=== PATIENT | male | born 1975 | race Caucasian/White ===

== ENCOUNTER 2019-05-14 13:43 | Observation (INO) | payer MEDICARE, SELFPAY ==
[2019-05-14] VITALS (10 sets, daily range): BP systolic 132–144; BP diastolic 67–101; PULSE 76–134; RESP 16–22; TEMP 37.1–37.4; O2SAT 95–98; BMI 29.6
--- NOTE | 2019-05-14 16:38 | W.ED.MALEGU ---
HPI - Male Genitourinary General Stated complaint: groin pain Time Seen by Provider: 05/14/19 16:12 Related Data Home Medications Medication Instructions Recorded Confirmed diphenhydramine HCl [Benadryl 50 mg PO BID PRN 05/14/19 05/14/19 Allergy] gabapentin 300 mg PO QID 05/14/19 05/14/19 multivitamin 1 tab PO DAILY 05/14/19 05/14/19 oxycodone 10 mg PO Q8H PRN 05/14/19 05/14/19 zolpidem [Ambien] 10 mg PO BEDTIME 05/14/19 05/14/19 Previous Rx's Medication Instructions Recorded sulfamethoxazole-trimethoprim 1 tab PO BID 7 Days #14 tab 05/14/19 Allergies Allergy/AdvReac Type Severity Reaction Status Date / Time Penicillins Allergy ALGY-Rash Verified 05/14/19 14:39 Discharge Plan Discharge Patient Disposition: Admitted As Inpatient Admit Provider: Trenton Temple Condition: Stable Discharge Orders: Discharge Order (Routine); Ordered 05/14/19 Ordered By: Trenton Temple Referrals: Trenton Temple MD [Physician] - (I need to see him tomorrow late morning for wound check and dressing change. Can reinforce the gauze pads over his wound.) Tabitha Barrios MD [Primary Care Provider] - 7-10 days Discharge Diet: Regular Discharge Activity: Limit activity as instructed Patient Instructions: Surgical Site Infections (GEN) Additional Instructions: Restrict activities until further released by Physician. Discharge Date/Time: 05/14/19 19:13
--- NOTE | 2019-05-14 16:54 | W.ED.MALEGU ---
HPI - Male Genitourinary General Chief complaint: Urogenital-Male Stated complaint: groin pain Time Seen by Provider: 05/14/19 16:12 Related Data Home Medications Medication Instructions Recorded Confirmed diphenhydramine HCl [Benadryl 50 mg PO BID PRN 05/14/19 05/14/19 Allergy] gabapentin 300 mg PO QID 05/14/19 05/14/19 hydrocodone-acetaminophen [[place]] See Rx Instructions .ROUTE 05/14/19 05/14/19 .COMPLEX PRN multivitamin 1 tab PO DAILY 05/14/19 05/14/19 oxycodone 10 mg PO Q8H PRN 05/14/19 05/14/19 zolpidem [Ambien] 10 mg PO BEDTIME 05/14/19 05/14/19 Allergies Allergy/AdvReac Type Severity Reaction Status Date / Time Penicillins Allergy ALGY-Rash Verified 05/14/19 14:39 Discharge Plan Discharge Patient Disposition: Home, Self-Care Condition: Stable Prescriptions: No Action gabapentin 300 mg Capsule 300 mg PO QID RF: 0 multivitamin Tablet 1 tab PO DAILY RF: 0 [place] 10-325 mg Tablet See Rx Instructions .ROUTE .COMPLEX PRN (Reason: Pain) RF: 0 Benadryl Allergy 25 mg Tablet 50 mg PO BID PRN (Reason: Allergic Symptoms) RF: 0 Ambien 10 mg Tablet 10 mg PO BEDTIME RF: 0 oxycodone 10 mg Tablet 10 mg PO Q8H PRN (Reason: Pain) RF: 0 Referrals: Tabitha Barrios MD [Primary Care Provider] - MDM - Male Lab Data Result diagrams: 05/14/19 17:25 05/14/19 17:25 Labs: Lab Results 05/14/19 05/14/19 Range/Units 17:25 17:25 WBC 19.8 H (4.0-10.0) 10^3/uL RBC 5.29 (4.1-5.3) 10^6/uL Hgb 15.2 (11.7-16.6) g/dL Hct 45.9 (42.0-52.0) % MCV 86.8 (80-94) fL MCH 28.7 (28.0-34.0) pg MCHC 33.1 (30.0-36.0) g/dL RDW 13.8 (12.1-15.1) % Plt Count 319 (130-400) 10^3/cmm MPV 9.7 (7.4-10.4) fL Neut % (Auto) 72.7 % Lymph % (Auto) 18.3 % [place] % (Auto) 7.6 % Eos % (Auto) 0.6 % Baso % (Auto) 0.4 % Neut # (Auto) 14.4 H (1.8-7.7) 10^3/uL Lymph # (Auto) 3.6 (0.8-4.8) 10^3/uL [place] # (Auto) 1.5 H (0.2-0.9) 10^3/uL Eos # (Auto) 0.1 (0.0-0.8) 10^3/uL Baso # (Auto) 0.1 (0.0-0.1) 10^3/uL Nucleated RBC % (auto) 0 % Nucleated RBCs # 0.0 /100WBC Sodium 141 (136-145) mmol/L Potassium 3.7 (3.5-5.1) mmol/L Chloride 103 (98-107) mmol/L Carbon Dioxide 24 (22-29) mmol/L Anion Gap 17.7 (5-19) BUN 14 (6-20) mg/dL Creatinine 0.9 (0.7-1.2) mg/dL GFR Calculation 92.5 (90-130) mL/min Glucose 134 H (74-109) mg/dL Calcium 10.1 H (8.6-10.0) mg/Dl Total Bilirubin 0.3 (0.15-1.2) mg/dL AST 13 (0-40) U/L ALT 13 (0-41) U/L Alkaline Phosphatase 84 (40-130) IU/L Total Protein 8.0 (6.6-8.7) g/dL Albumin 4.7 (3.5-5.2) g/dL Globulin 3.3 (1.3-4.6) g/dL
--- NOTE | 2019-05-14 17:06 | US_ITS ---
WS: [id number] SCROTAL ULTRASOUND EXAMINATION CLINICAL INFORMATION: developing abscess COMPARISON: None. FINDINGS: TESTES Mixed echogenicity left scrotal collection consistent with abscess measuring 2.5 x 2.3 cm. Associated skin thickening. Testicles are otherwise normal in appearance. Color Doppler: Normal color Doppler flow pattern. Right testes size: 4.1 cm x 1.9 cm x 2.5 cm. Left testes size: 3.7 cm x 2.2 cm x 2.6 cm. EPIDIDYMIDES Normal in size and echotexture, without focal lesion. Color Doppler: Normal color Doppler flow pattern. HYDROCELE None. VARICOCELE None. US/US scrotum 54230 IMPRESSION: 1. Left scrotal abscess measuring 2.5 x 2.3 CM. Associated scrotal skin thicke linda. 2. Testicles are otherwise normal in appearance.
[2019-05-14] MEDS: ondansetron 2 mg/ML SDV 2 mL 4 MG IVP (17:21)
[2019-05-14] MEDS: fentaNYL 50 mcg/mL INJ 2mL 100 MCG IVP ×2 (17:21→18:33)
[2019-05-14 17:37] LABS: Add RBC Morph No; Basophils # 0.1 10^3/uL (0.0-0.1); Basophils % 0.4 %; Eosinophils # 0.1 10^3/uL (0.0-0.8); Eosinophils % 0.6 %; Hematocrit 45.9 % (42.0-52.0); Hemoglobin 15.2 g/dL (11.7-16.6); Lymphocytes # 3.6 10^3/uL (0.8-4.8); Lymphocytes % 18.3 %; Mean Corpuscular HGB Conc 33.1 g/dL (30.0-36.0); Mean Corpuscular Hemoglobin 28.7 pg (28.0-34.0); Mean Corpuscular Volume 86.8 fL (80-94); Mean Platelet Volume 9.7 fL (7.4-10.4); Monocytes # 1.5 10^3/uL (0.2-0.9); Monocytes % 7.6 %; Neutrophils # 14.4 10^3/uL (1.8-7.7); Neutrophils % 72.7 %; Nucleated Red Blood Cells % 0 %; Platelet Count 319 10^3/cmm (130-400); Red Blood Count 5.29 10^6/uL (4.1-5.3); Red Cell Distribution Width 13.8 % (12.1-15.1); White Blood Count 19.8 10^3/uL (4.0-10.0)
--- NOTE | 2019-05-14 17:43 | PC.NURSE ---
US AT BEDSIDE. TOLERATING PROCEDURE WELL.
[2019-05-14 17:57] LABS: Alanine Aminotransferase 13 U/L (0-41); Albumin Level 4.7 g/dL (3.5-5.2); Alkaline Phosphatase 84 IU/L (40-130); Anion Gap 17.7 (5-19); Aspartate Amino Transferase 13 U/L (0-40); Blood Urea Nitrogen 14 mg/dL (6-20); Calcium 10.1 mg/Dl (8.6-10.0); Carbon Dioxide 24 mmol/L (22-29); Chloride 103 mmol/L (98-107); Globulin 3.3 g/dL (1.3-4.6); Glomerular Filtration Rate 92.5 mL/min (90-130); Glucose 134 mg/dL (74-109); Potassium 3.7 mmol/L (3.5-5.1); Sodium 141 mmol/L (136-145); Total Bilirubin 0.3 mg/dL (0.15-1.2)
--- NOTE | 2019-05-14 19:07 | P.HP_ITS ---
Providers/Chief Complaint Admitting Physician: Windy Primary Care Provider: Tabitha Barrios Chief Complaint: scrotal/perineal abscess History of Present Illness Reyes Perez is a 44 year old male who noticed an infected ingrown hair on his left hemiscrotum in pulled out forcefully. Yesterday he had a acorn size lesion that was tender and by this afternoon it became the size of a lemon. He presented to the emergency department was found to have a white count of 19,000 and a scrotal ultrasound confirmed large left hemiscrotal abscess. He was exquisitely tender. Could not get comfortable. No signs of sepsis. Received VANCOMYCIN 1 g in the emergency department. I was consulted for evaluation. Physical findings confirmed left hemiscrotal/perineal abscess. Did not involve the deep structures of the scrotum. Ultrasound reviewed and I agreed with it. He gave consent for emergent drainage of scrotal abscess. Review of Systems Const: Reports: fever and chills Eyes: Denies: change in vision ENMT: Denies: throat pain or mouth pain Card: Denies: chest pain or palpitations Resp: Reports: non-productive cough; Denies: shortness of breath GI: Denies: abdominal pain, nausea or vomiting : Reports: genital pain and scrotal swelling; Denies: flank pain or difficulty urinating Musc: Denies: neck pain or joint stiffness Neuro: Denies: headache or behavioral changes Psych: Reports: anxiety Endo: Denies: excessive urination Kvng/Lymph: Denies: easy bruising or easy bleeding All/Imm: Denies: hives Medications/Allergies Home Medications Medication Instructions Recorded Confirmed Last Taken Type diphenhydramine HCl [Benadryl 50 mg PO BID PRN 05/14/19 05/14/19 05/14/19 History Allergy] gabapentin 300 mg PO QID 05/14/19 05/14/19 Unknown History hydrocodone-acetaminophen [[place]] See Rx Instructions .ROUTE 05/14/19 05/14/19 05/14/19 10:00 History .COMPLEX PRN multivitamin 1 tab PO DAILY 05/14/19 05/14/19 Unknown History oxycodone 10 mg PO Q8H PRN 05/14/19 05/14/19 05/13/19 History zolpidem [Ambien] 10 mg PO BEDTIME 05/14/19 05/14/1919 History Allergies Allergy/AdvReac Type Severity Reaction Status Date / Time Penicillins Allergy ALGY-Rash Verified 05/14/19 14:39 PFSH Acute PFSH: Statuses (acute, chronic, etc) shown below reflect problem list status as previously entered and may not be historically accurate Medical History Chronic pain (Acute) Crohn's colitis (Acute) Hypertension (Acute) Osteoarthritis (Acute) Surgical History Surgical history unknown (Acute) Family History Unknown Fibromyalgia Breast cancer genetic susceptibility Mother Breast cancer genetic susceptibility Social History Smoking and tobacco status: current every day smoker Vitals/I&O/Wt Last Vital Signs Temp 98.7 F 05/14/19 14:28 Pulse 81 05/14/19 17:54 Resp 20 H 05/14/19 17:54 BP 132/79 05/14/19 17:54 Pulse Ox 98 05/14/19 14:28 Weight last 48 hrs Weight 88.451 kg Physical Exam Const: COMMON NORMALS: oriented x3 and well nourished; apparent distress EXAM LIMITATIONS: no altered mental status GENERAL APPEARANCE: cooperative ORIENTATION/CONSCIOUSNESS: Yes awake and Yes oriented to person HENMT: COMMON NORMALS: normocephalic and head/scalp atraumatic Eye: COMMON NORMALS: conjunctivae normal and no scleral icterus Neck/C-Spine: COMMON NORMALS: full ROM and supple Lymph: LYMPHATIC: no lymphadenopathy noted Resp: COMMON NORMALS: normal respiratory effort; negative for no retractions EFFORT & INSPECTION: Yes able to speak in complete sentences AUSCULTATION: clear to auscultation bilaterally Cardio: COMMON NORMALS: regular rhythm RATE: tachycardic RHYTHM: regular rhythm GI: COMMON NORMALS: normal to inspection, nondistended, normoactive bowel sounds : COMMON NORMALS: Yes no CVA tenderness MALE GROIN/PERINEUM EXAM: Yes edema, Yes perineal induration and No perineum crepitus SCROTUM: Yes testes descended bilaterally, Yes tenderness, Yes erythematous and Yes scrotal swelling Scrotal swelling laterality: left TESTES: Yes testicular lie normal, No enlarged testicle(s), No testicular tenderness, No epididymal induration and No epididymal tenderness Extremity: COMMON NORMALS: normal to inspection and no clubbing, cyanosis or edema GENERAL: No clubbing and No cyanosis Neuro: COMMON NORMALS: oriented x3 SENSORIUM/ORIENTATION: Yes alert MOTOR EXAM: No movement abnormality noted Psych: COMMON NORMALS: cooperative and affect normal APPEARANCE: Yes well kempt ATTITUDE: No uncooperative and No agitated MOOD & AFFECT: Yes anxious THOUGHT PROCESS: normal thought process Skin: COMMON NORMALS: no rashes or lesions noted and no wounds Data Labs: Other Labs: All Labs last 24 hrs except CBC/BMP 05/14/19 05/14/19 17:25 17:25 RBC 5.29 MCV 86.8 MCH 28.7 MCHC 33.1 RDW 13.8 MPV 9.7 Neut % (Auto) 72.7 Lymph % (Auto) 18.3 [place] % (Auto) 7.6 Eos % (Auto) 0.6 Baso % (Auto) 0.4 Neut # (Auto) 14.4 H Lymph # (Auto) 3.6 [place] # (Auto) 1.5 H Eos # (Auto) 0.1 Baso # (Auto) 0.1 Nucleated RBC % (a uto) 0 Nucleated RBCs # 0.0 GFR Calculation 92.5 Calcium 10.1 H Total Bilirubin 0.3 AST 13 ALT 13 Alkaline Phosphata se 84 Total Protein 8.0 Albumin 4.7 Globulin 3.3 A&P Assessment and plan (1) Perineal abscess: Abrupt onset with fairly prompt progression no evidence of gangrene or necrotizing fasciitis Status: Acute Code(s): L02.215 - Cutaneous abscess of perineum (2) Scrotal wall abscess: See above Status: Acute Code(s): N49.2 - Inflammatory disorders of scrotum Attestations Medical Necessity Statement*: Scrotal Abscess needs surgical drainage Coding Level of Care Code 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
--- NOTE | 2019-05-14 19:27 | PM.OP ---
Operative Report Post-Operative Note: Date of procedure: 05/14/19 Preop Diagnosis: Scrotal/perineal abscess Post-op Findings: Scrotal/perineal abscess Procedure Done: Drainage of scrotal abscess Pathology: other (Wound culture) Surgeon: Trenton Temple Anesthesia: general Complications: none Findings: Large abscess involving primarily the perineum near the perineal scrotal junction extending lateral to the left hemiscrotum. Condition: stable Disposition: PACU Operative Report: Brief History: 44-year-old white male presented to the emergency department today with complaints of a corn size small infectious lesion resulted from ingrown hair forcible removal. Overnight it increased to the size of a lemon. Exquisite pain. White count was 19,000. Physical exam confirmed no evidence of Clemente's gangrene. No involvement of the intrascrotal contents. The bulk of the abscess was actually extra scrotal and at the perineal scrotal junction. Procedure: After emergent evaluation examination and obtaining of informed consent he was taken to the operating suite on 05/14/2019 where general anesthesia was administered without difficulty after appropriate time out was performed, SCDs confirmed to be functioning, preoperative antibiotics administered, beta-myra protocol confirmed. Prepped and draped in usual sterile fashion in dorsolithotomy position pain careful attention to avoiding pressure points. The area of induration was again palpated and incised with a 10 blade with an incision approximately 2.5 to 3 cm in length. Immediate release of purulent fluid was noted and cultures were performed. The wound was incised enough to pass a small finger and then it was copiously irrigated and palpated to break up any loculations. The perineal skin and subcutaneous tissue were quite thickened. Wound was then sterilely packed with Nu Gauze. External dressings used to cover and maternity briefs placed over those. Tolerated procedure well without complications and was awakened in the operating room and returned to recovery in stable condition. PLANS: 1. Check wound tomorrow. Repack. Train family on wound care. Likely discharge at that time. 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
[2019-05-14] MEDS: sodium chloride 0.9% 1,000 ML 30 ML IV (19:29)
--- NOTE | 2019-05-14 19:39 | P.PN_ITS ---
Pre-Anesthetic Assessment Pre-Anesthetic Assessment: Height/Weight: Height 1.73 m Weight 88.451 kg Temp Pulse Resp BP Pulse Ox 98.7 F 76 18 137/67 98 05/14/19 14:28 05/14/19 19:11 05/14/19 19:11 05/14/19 19:11 05/14/19 19:11 Proposed Procedure: Operation Date: 05/14/19 18:55 Proposed Procedures p Scrotal Exploration(Not Applicable) - Trenton Temple MD Social: Social History: Alcohol and Tobacco Exam: Pre-Anes Outpt Exam: alert, oriented x 3, clear to auscultation bilaterally and regular rate & rhythm Airway: Submandibular: WNL Cervical ROM: WNL MP: 2 Dentition: False Pulmonary: Pulmonary: COPD Musc/skel: Comments: chronic pain Anesthetic Plan: ASA status: E Anesthesia: Anesthesia Evaluation and General Risk of > 500 ml blood loss (7ml/kg in children): No Meds/Allergies Current Medications: Current Medications Generic Name Dose Route Start Last Admin Trade Name Freq PRN Reason Stop Dose Admin Sodium Chloride 1,000 mls @ 30 ml s/hr 05/14/19 19:30 05/14/19 19:29 Sodium Chloride 0.9% IV 30 mls/hr .Q24H GAUTAM Administration PFSH Anesthesia PFSH: Medical History Chronic pain (Acute) Crohn's colitis (Acute) Hypertension (Acute) Osteoarthritis (Acute) Surgical History Surgical history unknown (Acute) Family History Unknown Fibromyalgia Breast cancer genetic susceptibility Mother Breast cancer genetic susceptibility Social History Smoking and tobacco status: current every day smoker Data Anesthesia Labs: Other Labs: Laboratory Results - last 48 hr 05/14/19 05/14/19 17:25 17:25 WBC 19.8 H RBC 5.29 Hgb 15.2 Hct 45.9 MCV 86.8 MCH 28.7 MCHC 33.1 RDW 13.8 Plt Count 319 MPV 9.7 Neut % (Auto) 72.7 Lymph % (Auto) 18.3 [place] % (Auto) 7.6 Eos % (Auto) 0.6 Baso % (Auto) 0.4 Neut # (Auto) 14.4 H Lymph # (Auto) 3.6 [place] # (Auto) 1.5 H Eos # (Auto) 0.1 Baso # (Auto) 0.1 Nucleated RBC % (a uto) 0 Nucleated RBCs # 0.0 Sodium 141 Potassium 3.7 Chloride 103 Carbon Dioxide 24 Anion Gap 17.7 BUN 14 Creatinine 0.9 GFR Calculation 92.5 Glucose 134 H Calcium 10.1 H Total Bilirubin 0.3 AST 13 ALT 13 Alkaline Phosphata se 84 Total Protein 8.0 Albumin 4.7 Globulin 3.3 Cardiac Studies: No Data to Display
== END 2019-05-14 21:30 | disposition home or self-care (01) ==
LOC: ER 18:17 → OR 18:25 → MEDSURG 20:10
PROVIDERS: Admitting Provider Urology; Emergency Provider Family Medicine; Family Provider Family Medicine; PCP Family Medicine; Visit Provider Urology
PROC: (CPT 55110; principal; 2019-05-14 18:55)
DX: N49.2 Inflammatory disorders of scrotum (principal); I10 Essential (primary) hypertension; M19.90 Unspecified osteoarthritis, unspecified site; F17.210 Nicotine dependence, cigarettes, uncomplicated
CPT/HCPCS: 54700; 36415; 76870; 80053; 85025; 87070; 87075; 87077; 87205; 96374; 99281; 99284; J0330; J2405; J2704; J2710; J3010; J3490; J7030

== ENCOUNTER 2019-11-19 05:53 | Day surgery (SDC) | payer MEDICARE, SELFPAY ==
[2019-11-18 16:42] VITALS: BMI 28.3
[2019-11-19] VITALS (8 sets, daily range): BP systolic 114–159; BP diastolic 72–94; PULSE 82–93; RESP 18–20; TEMP 36.3–36.9; O2SAT 97–100
--- NOTE | 2019-11-19 06:30 | ANES.PREANE2 ---
Pre-Anesthetic Assessment Pre-Anesthetic Assessment: Height/Weight: Height 1.73 m Weight 84.368 kg Temp Pulse Resp BP Pulse Ox 98.5 F 93 18 159/94 98 11/19/19 06:08 11/19/19 06:08 11/19/19 06:08 11/19/19 06:08 11/19/19 06:08 Preop Diagnosis: Scrotal/perineal abscess Proposed Procedure: Operation Date: 11/19/19 07:10 Proposed Procedures p Incision And Drainage perianal abscess 99168 L02.215(Not Applicable) - Harry Quiñones MD Last intake: Intake Last Liquid Date 11/18/19 Last Solid Date 11/18/19 Social: Social History: Alcohol and Tobacco Exam: Pre-Anes Outpt Exam: alert, oriented x 3, clear to auscultation bilaterally and regular rate & rhythm Airway: Submandibular: WNL Cervical ROM: WNL MP: 1 Dentition: Other (edentureless) History/ROS: No significant history except as noted Pulmonary: Pulmonary: None reported CV/HEM: CV/HEM: None reported : : None reported Hepatic: Hepatic: None reported GI: Comments: crohn's dz Metabolic: Metabolic: None reported Musc/skel: Musc/skel: OA/DJD Neuropsych: Neuropsych: Anxiety and Depression Anesthetic Plan: ASA status: 2 Anesthesia: Anesthesia Evaluation and General Risk of > 500 ml blood loss (7ml/kg in children): No PFSH Anesthesia PFSH: Medical History Chronic pain Crohn's colitis Hypertension Osteoarthritis Perineal abscess Scrotal wall abscess Surgical History Surgical history unknown Family History Unknown Fibromyalgia Breast cancer genetic susceptibility Mother Breast cancer genetic susceptibility Sister Breast cancer genetic susceptibility BILATERAL MASTECTOMY Denies family history of Anesthesia complication Bleeding disorder Social History Smoking and tobacco status: current every day smoker cigarettes Packs smoked per day: 0.5 Years cigarettes smoked: 25 Second hand smoke exposure: Yes Alcohol intake: current Alcohol intake frequency: holidays/special occasions only Lives independently: Yes Household members: spouse Marital status: service: No Current occupational status: disabled History of recent travel: No Current gender identity: Male Data Anesthesia Cardiac Studies: No Data to Display
[2019-11-19] MEDS: sodium chloride 0.9% 1,000 ML 30 ML IV (06:40)
[2019-11-19] MEDS: levofloxacin-dextrose 5 % 500 MG/100 ML PREMIX 100 MG IV (07:00)
--- NOTE | 2019-11-19 07:29 | PM.OP ---
Operative Report Date of procedure: November 19, 2019 Pre-op Diagnosis: Perianal abscess Post-op Diagnosis: 4 x 4 centimeter perianal abscess Procedure Done: Incision and drainage of perianal abscess Specimens removed/disposition: Aerobic and anaerobic wound cultures Surgeon: Harry Quiñones Anesthesia: General Estimated blood loss (mL): 5 Procedure: The patient was taken to the operating room and placed in lateral position under MAC after IV antibiotic had been administered. The perianal area was draped in a sterile manner. Using a 15 blade a 3cm radial incision was made about 1.5 cm from the anal verge at the area of maximal fluctuance with drainage of jesse pus. Aerobic anaerobic wound cultures were obtained. The incision was then converted to a cruciate incision and loculations were taken down bluntly. The wound was irrigated saline and packed with quarter inch ribbon gauze soaked in 0.5% [place]. Sterile dressings were applied. The patient was extubated and transferred to recovery room in stable condition.
[2019-11-19] MEDS: fentaNYL 50 mcg/mL INJ 2mL IVP (07:31)
[2019-11-19] MEDS: HYDROcodone-acetaminophen 5-325 mg Tablet 1 TAB PO (08:13)
== END 2019-11-19 08:27 | disposition home or self-care (01) ==
PROVIDERS: PCP Nurse Practitioner Family; Visit Provider Surgery
PROC: (CPT 46050; principal; 2019-11-19 07:00)
DX: K61.0 Anal abscess (principal); I10 Essential (primary) hypertension; M19.90 Unspecified osteoarthritis, unspecified site; F17.210 Nicotine dependence, cigarettes, uncomplicated
CPT/HCPCS: 46050; 12345; 87070; 87075; 87077; 87205; 96365; J0330; J1100; J1956; J2001; J2370; J2405; J2704; J3010; J3490; J7030

== ENCOUNTER 2020-02-04 13:56 | Outpatient (CLI) | payer MEDICARE, SELFPAY ==
--- NOTE | 2020-02-04 14:01 | XRR_ITS ---
PROCEDURE INFORMATION: Exam: XR Chest, 2 Views Exam date and time: 02/04/2020 2:02 PM Age: 44 years old Clinical indication: Chest pain; Type not specified; Additional info: Chest pain at rest x couple of months TECHNIQUE: Imaging protocol: XR of the chest Views: 2 views. COMPARISON: No relevant prior studies available. FINDINGS: Lungs: Unremarkable. No consolidation. Pleural space: Unremarkable. No pleural effusion. No pneumothorax. Heart/Mediastinum: Unremarkable. No cardiomegaly. Bones/joints: Unremarkable. XR/XR chest 2V* [id number] IMPRESSION: No acute findings.
== END 2020-02-04 13:57 | disposition home or self-care (01) ==
LOC: RAD 13:57
PROVIDERS: PCP Nurse Practitioner Family; Visit Provider Nurse Practitioner Family
DX: R07.9 Chest pain, unspecified (principal)
CPT/HCPCS: 71046

== ENCOUNTER 2020-03-05 13:40 | Emergency (ER) | payer MEDICARE, SELFPAY ==
[2020-03-05 13:44] VITALS: BP 146/94; PULSE 110; RESP 20; TEMP 36.5; O2SAT 98; BMI 28.8
--- NOTE | 2020-03-05 14:20 | ED_ITS ---
HPI - Back Pain/Injury General: Chief Complaint: Back Pain/Injury Stated Complaint: Lower back pain Time Seen by Provider: 03/05/20 13:56 Source: patient Mode of arrival: ambulatory Limitations: no limitations History of Present Illness: HPI Narrative: Patient was assisting a friend to help on a truck when a 200 pound dog that belonged to his friend run into the patient, causing him to twist and fall. He has had severe right back pain since then. He feels his muscles are spasming. Movement and turning make the pain worse. He is here to be seen MD elicited complaint: back pain and back injury Pertinent past history: prior back pain Timing: constant and progressively worsening Severity: severe Quality: spasming Location: right lower back Radiation: none Exacerbating factors: movement Relieving factors: none Context: while lifting and turning/twisting Associated symptoms: Deny abdominal pain, arthralgias, chills, change in bowel habits, difficulty walking, dysuria, fatigue, fecal incontinence, fever(s), hematuria, myalgias, nausea, numbness, syncope, tingling/numbness/burning, urinary frequency, urinary urgency, vomiting or weakness Review of Systems General: Reports: 10 or more systems reviewed and unremarkable except in HPI and below Const: Denies: fever(s), chills or fatigue Eyes: Denies: change in vision or blurry vision ENMT: Denies: throat pain, enlarged tonsils, odynophagia, hoarseness, mouth pain or swelling of lips/tongue Card: Denies: syncope Resp: Denies: dyspnea, productive cough or non-productive cough GI: Denies: abdominal pain, nausea, vomiting, fecal incontinence or change in bowel habits : Denies: dysuria, urinary urgency or hematuria Musc: Denies: neck pain, back pain or extremity swelling Skin/Breast: Denies: rash, pruritus or erythema Neuro: Denies: difficulty walking Endo: Denies: polyuria, polydipsia or tired all the time PFS ED PFSH: Medical History (Reviewed 03/05/20 @ 14:29 by Ahsan [place] [facility] [place] Crohn's colitis Diverticulitis Hypertension Osteoarthritis Perineal abscess Scrotal wall abscess Surgical History (Reviewed 03/05/20 @ 14:29 by Ahsan Nelson [place] [facility] [place] History of back surgery History of colonoscopy History of esophagogastroduodenoscopy (EGD) Status post incision and drainage (11/19/19) Perianal abscess Status post shoulder surgery 4 SURGERIES ON RIGHT SHOULDER Surgical history unknown [place] History (Reviewed 03/05/20 @ 14:29 by Ahsan [place] [facility] [place] Unknown Fibromyalgia Breast cancer genetic susceptibility Mother Breast cancer genetic susceptibility Sister Breast cancer genetic susceptibility BILATERAL MASTECTOMY Denies family history of Anesthesia complication Bleeding disorder Social History (Reviewed 03/05/20 @ 14:29 by Ahsan Nelson [place] [facility] Smoking and tobacco status: current every day smoker cigarettes Packs smoked per day: 0.5 Years cigarettes smoked: 25 Second hand smoke exposure: Yes Alcohol intake: current Alcohol intake frequency: holidays/special occasions only Lives independently: Yes Household members: spouse Marital status: service: No Current occupational status: disabled History of recent travel: No Current gender identity: Male Physical Exam Const: COMMON NORMALS: no acute distress, average body habitus, patient oriented x3, no limitations, healthy appearing, alert and well nourished HENMT: COMMON NORMALS: normocephalic, atraumatic and moist oral mucous membranes HEAD & SCALP: normocephalic and atraumatic Eye: COMMON NORMALS: Equal, round and reactive pupils present, EOMs intact bilaterally, conjunctivae normal and no scleral icterus CONJUNCTIVA: Yes conjunctivae normal PUPIL: Yes Equal, round and reactive pupils present Neck/C-Spine: COMMON NORMALS: full ROM, supple, no meningeal signs, no JVD and No carotid bruits Resp: COMMON NORMALS: normal respiratory effort, No retractions, No use of accessory muscles, clear to auscultation bilaterally and percussion normal AUSCULTATION: clear to auscultation bilaterally PERCUSSION: percussion normal Cardio: COMMON NORMALS: no JVD, regular rate, regular rhythm, S1 normal heart sound present, S2 normal heart sound present, No gallops present (Cardio), No clicks present (Cardio), No murmurs present (Cardio), No rub (Cardio) and Peripheral pulses 2+ throughout RATE: regular rate RHYTHM: regular rhythm HEART SOUNDS: S1 normal heart sound present and S2 normal heart sound present PERIPHERAL PULSES: Peripheral pulses 2+ throughout GI: COMMON NORMALS: Normal to inspection, nondistended, normoactive bowel sounds present, Soft to palpation, non-tender, No hepatosplenomegaly present, no masses and no bruits PALPATION: Yes Soft to palpation and Yes No hepatosplenomegaly present Back/Pelvis: LUMBAR SPINE/LOWER BACK: Yes paraspinal muscle tenderness Lumbar paraspinal muscle tenderness: right and Yes paraspinal muscle spasm Lumbar paraspinal muscle spasm: right Extremity: COMMON NORMALS: normal to inspection, full ROM, capillary refill normal, no calf tenderness and no pedal edema Neuro: COMMON NORMALS: patient oriented x3 SENSORIUM/ORIENTATION: Yes alert MENINGEAL SIGNS: Yes no meningeal signs Skin: COMMON NORMALS: no rashes or lesions noted, no wounds, turgor normal, no jaundice, no petechiae and no mottling GENERAL SKIN EXAM: no rashes or lesions noted and turgor normal Course Reevaluation(s): Reevaluation #1: Pain is much improved from when he first arrived. Pain medications have helped. He is ready to be discharged home. He still has some pain so will give him a prescription for muscle relaxants and pain medication. He voiced understanding and is in agreement with the plan Time: 16:27 Vital Signs: Vital signs: Vital Signs Temperature 97.7 F 03/05/20 13:44 Pulse Rate 110 H 03/05/20 13:44 Respiratory Rate 18 03/05/20 14:28 Blood Pressure 146/94 03/05/20 13:44 Pulse Oximetry 98 03/05/20 13:44 MDM - Back Pain/Injury MDM Narrative: Medical decision making narrative: Patient with uncomplicated lumbar paraspinal muscle spasm and pain. He has tender lymph following intramuscular fentanyl and Norflex. He is discharged home with a prescription for hydrocodone and a muscle relaxants. Medical Records: Attestation: I reviewed the patient's medical records. Discharge Plan Discharge Patient Disposition: Home Clinical Impression: Lumbar paraspinal muscle spasm Strain of lumbar region Qualifiers: Encounter type: initial encounter Qualified Code(s): S39.012A - Strain of muscle, fascia and tendon of lower back, initial encounter Condition: Stable Prescriptions: New hydrocodone-acetaminophen 5-325 mg tablet 1 tab PO Q8H PRN (Reason: pain) Qty: 12 RF: 0 baclofen 20 mg tablet 10 mg PO Q8H Qty: 30 RF: 0 Continued lisinopril 10 mg tablet 10 mg PO DAILY RF: 0 sulfamethoxazole-trimethoprim 800-160 mg tablet 1 tab PO BID Qty: 20 RF: 3 multivitamin Tablet 1 tab PO DAILY RF: 0 diphenhydramine HCl [Benadryl Allergy] 25 mg Tablet 50 mg PO BID PRN (Reason: Allergic Symptoms) RF: 0 zolpidem [Ambien] 10 mg Tablet 10 mg PO BEDTIME RF: 0 No Action oxycodone 10 mg tablet 10 mg PO Q8H PRN (Reason: painful procedure) 4 Days Qty: 12 RF: 0 Discharge Orders: Discharge Order (Routine); Ordered 03/05/20 Ordered By: Ahsan Nelson Referrals: Claudia Merino APN [Primary Care Provider] - 1-3 days Discharge Diet: Usual diet Discharge Activity: Increase activity as tolerated Patient Instructions: Muscle Spasm (ED) Activity Restrictions/Additional Instructions: Return for any new or worsening symptoms. Follow-up with your primary care provider within 3 days. Take medications as prescribed. 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
[2020-03-05 14:28] VITALS: RESP 18
[2020-03-05] MEDS: fentaNYL 50 mcg/mL INJ 2mL IVP (14:28)
[2020-03-05] MEDS: orphenadrine 30 mg/mL Inj 2 mL 60 MG IM (14:29)
--- NOTE | 2020-03-05 15:21 | PC.NURSE ---
Pt reports his pain is much better since receiving medication.
== END 2020-03-05 16:40 | disposition home or self-care (01) ==
PROVIDERS: Emergency Provider Family Medicine; PCP Nurse Practitioner Family
DX: S39.012A Strain of muscle, fascia and tendon of lower back, initial encounter (principal); M62.830 Muscle spasm of back; X50.1XXA Overexertion from prolonged static or awkward postures, initial encounter; I10 Essential (primary) hypertension; F17.210 Nicotine dependence, cigarettes, uncomplicated
CPT/HCPCS: 12345; 96372; 96374; 99281; 99283; J2360; J3010

== ENCOUNTER → 2020-04-20 10:45 | Outpatient (BNVA) | payer MEDICARE, SELFPAY | PROVIDERS: PCP Hospitalist; Referring Provider Hospitalist; Visit Provider Anesthesiology Pain Medicine | DX: M25.519 Pain in unspecified shoulder (principal); M19.90 Unspecified osteoarthritis, unspecified site; Z98.890 Other specified postprocedural states; K57.92 Diverticulitis of intestine, part unspecified, without perforation or abscess without bleeding; K50.10 Crohn's disease of large intestine without complications | CPT/HCPCS: 99205 ==

== ENCOUNTER 2020-04-26 15:49 | Emergency (ER) | payer MEDICARE, SELFPAY ==
[2020-04-26 15:55] VITALS: BP 130/86; PULSE 122; RESP 18; TEMP 36.9; O2SAT 96; BMI 29.7
[2020-04-26] MEDS: HYDROcodone-acetaminophen 7.5-325 mg Tablet 1 TAB PO (16:20)
--- NOTE | 2020-04-26 16:20 | ED_ITS ---
HPI - Skin/Abscess/Foreign Bdy General: Chief complaint: Skin/Abscess/Foreign Body Stated complaint: Abscess Time Seen by Provider: 04/26/20 15:52 Source: patient Mode of arrival: ambulatory Limitations: no limitations History of Present Illness: HPI narrative: 45-year-old male patient presents to the emergency department with an abscess to his left groin area. Patient states this is been going on for a year and he sees his PCP for this as well as had surgery. Patient states there is a hardened area that is draining. Patient denies any fever. Patient states the area is painful. Patient denies any other complaints at this time Associated symptoms: Deny chills, fever(s), nausea or vomiting Review of Systems General: Reports: 10 or more systems reviewed and unremarkable except in HPI and below Const: Denies: fever(s) or chills GI: Denies: abdominal pain, nausea or vomiting : Denies: flank pain, difficulty urinating, dysuria or urinary frequency Musc: Denies: neck pain or back pain Skin/Breast: Reports: lesions; Denies: rash Neuro: Denies: headache(s) or numbness in extremities Psych: Denies: suicidal ideation or homicidal ideation PFSH ED PFSH: Medical History Crohn's colitis Diverticulitis Hypertension Osteoarthritis Perineal abscess Scrotal wall abscess Surgical History History of back surgery History of colonoscopy History of esophagogastroduodenoscopy (EGD) Status post incision and drainage (11/19/19) Perianal abscess Status post shoulder surgery 4 SURGERIES ON RIGHT SHOULDER Family History Unknown Fibromyalgia Breast cancer genetic susceptibility Mother Breast cancer genetic susceptibility Sister Breast cancer genetic susceptibility BILATERAL MASTECTOMY Other Brain cancer CAD (coronary artery disease) Diabetes Denies family history of Anesthesia complication Bleeding disorder Social History Smoking and tobacco status: current every day smoker cigarettes Packs smoked per day: 0.5 Years cigarettes smoked: 25 [ Other cigarette details: LESS THAN 1 PPD ] Second hand smoke exposure: Yes Alcohol intake: former Lives independently: Yes Household members: spouse Marital status: service: No Current occupational status: retired and disabled History of recent travel: No Current gender identity: Male Physical Exam Const: COMMON NORMALS: no acute distress, average body habitus, patient oriented x3, no limitations, healthy appearing, alert and well nourished Resp: COMMON NORMALS: normal respiratory effort and No retractions Neuro: COMMON NORMALS: patient oriented x3 SENSORIUM/ORIENTATION: Yes alert Skin: COMMON NORMALS: turgor normal SKIN IMAGES (MALE): 1. 2 cm indurated area that has an opening that is draining purulent drainage GENERAL SKIN EXAM: elasticity normal and turgor normal LESIONS: lesion noted (Left groin area) Course Vital Signs: Vital signs: Vital Signs Temperature 98.5 F 04/26/20 15:55 Pulse Rate 122 H 04/26/20 15:55 Respiratory Rate 18 04/26/20 15:55 Blood Pressure 130/86 04/26/20 15:55 Pulse Oximetry 96 04/26/20 15:55 MDM - Skin/Abscess/Foreign Bdy MDM Narrative: Medical decision making narrative: Patient is well-appearing nontoxic and in no acute distress. Patient does have2 cm indurated area that has an opening that is draining purulent drainage. The area is very indurated and is already draining on its own I do not think patient would benefit from any additional incision and drainage at this time. Patient has an appointment with his primary care physician on Sunday. I will start patient on antibiotics and send home with a short course of pain meds. Return precautions advised and home care reviewed. Discharge Plan Discharge Patient Disposition: Home Condition: Stable Prescriptions: No Action lisinopril 10 mg tablet 10 mg PO DAILY@2099 RF: 0 atorvastatin 20 mg tablet 20 mg PO DAILY@2099 RF: 0 tramadol 50 mg tablet 50 mg PO TID PRN (Reason: Moderate to severe pain) Qty: 90 RF: 0 gabapentin 300 mg capsule 300 mg PO TID Qty: 90 RF: 0 multivitamin Tablet 1 tab PO DAILY@2099 RF: 0 diphenhydramine HCl [Benadryl Allergy] 25 mg Tablet 50 mg PO BID PRN (Reason: Allergic Symptoms) RF: 0 zolpidem [Ambien] 10 mg Tablet 10 mg PO BEDTIME@2099 RF: 0 Discharge Orders: Discharge ED (Routine); Ordered 04/26/20 Ordered By: Ijeoma Rick Referrals: Ranjith Farnsworth MD [Primary Care Provider] - Discharge Diet: Advance as tolerated Discharge Activity: Resume usual activity Activity Restrictions/Additional Instructions: Please take meds as directed Please keep appointment for abscess check this week as scheduled with PCP Return to ER sooner with any worsening of symptoms Please do not drive or operate heavy machinery while taking norco Coding Level of Care Code ED 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
== END 2020-04-26 16:42 | disposition home or self-care (01) ==
PROVIDERS: Emergency Provider Registered Nurse; PCP Hospitalist
DX: L02.214 Cutaneous abscess of groin (principal); I10 Essential (primary) hypertension; F17.210 Nicotine dependence, cigarettes, uncomplicated
CPT/HCPCS: 12345; 99281; 99283

== ENCOUNTER → 2020-04-28 14:48 | Outpatient (BNVA) | payer MEDICARE, SELFPAY | PROVIDERS: PCP Hospitalist; Visit Provider Urology | DX: N49.2 Inflammatory disorders of scrotum (principal); L02.215 Cutaneous abscess of perineum; N39.9 Disorder of urinary system, unspecified; F17.210 Nicotine dependence, cigarettes, uncomplicated | CPT/HCPCS: 81003 ==

== ENCOUNTER 2020-05-24 12:46 | Outpatient (CLI) | payer MEDICARE, SELFPAY ==
--- NOTE | 2020-05-24 12:55 | XRR_ITS ---
PROCEDURE INFORMATION: Exam: XR Left Shoulder Exam date and time: 05/24/2020 1:14 PM Age: 45 years old Clinical indication: Pain; Shoulder; Left; Additional info: Chronic pain of left shoulder TECHNIQUE: Imaging protocol: XR Left shoulder. Views: 2 or more views. COMPARISON: No relevant prior studies available. FINDINGS: Bones/joints: No fracture. No dislocation. Minimal degeneration of the acromioclavicular and glenohumeral joints. The acromiohumeral interval is normal. Bone island in the humeral epiphysis. Soft tissues: No acute soft tissue abnormality. XR/XR shoulder LT min 2V* [id number] IMPRESSION: Minimal degenerative changes.
== END 2020-05-24 12:47 | disposition home or self-care (01) ==
PROVIDERS: PCP Hospitalist; Visit Provider Family Medicine
DX: M25.512 Pain in left shoulder (principal); G89.29 Other chronic pain
CPT/HCPCS: 73030

== ENCOUNTER 2021-01-14 11:03 | Outpatient (CLI) | payer MEDICARE, SELFPAY ==
--- NOTE | 2021-01-14 11:00 | MR_ITS ---
WS: [id number] MRI LEFT SHOULDER HISTORY: Chronic left shoulder pain for nearly one year COMPARISON: Radiograph 05/24/2020 TECHNIQUE: Multiplanar sequences of the shoulder joint are submitted. Moderate AC joint osteoarthritis. Marrow edema in the clavicle and acromion with narrowing of the rita nt and fluid within the AC ligament. Thickening of the capsule surrounding the AC joint with encroach ment upon the supraspinatus tendon and muscle over the humeral head. No os acromion. Biceps tendon is in the bicipital groove but there is increased signal within the biceps tendon suggesting there is a split tear. Insertion site tear of the anterior most supraspinatus tendon. Tear extends over a width of 8 mm. The re is additional tendinopathy in the distal supraspinatus. The remaining tendons are intact. No muscl e atrophy or edema. There is intrasubstance degeneration throughout the labrum but no discrete tear i dentified. No joint effusion. Small amount of marrow edema in the posterior lateral humeral head. At the site of the rotator cuff insertion. MR/MR shoulder LT wo con* [id number] IMPRESSION: 1. Moderate AC joint arthritis with encroachment upon the supraspinatus muscle and tendon. 2. Moderate-sized insertion site tear supraspinatus tendon with adjacent tendi nopathy. 3. Minimal split tear biceps tendon. No full-thickness tear or dislocation.
== END 2021-01-14 11:04 | disposition home or self-care (01) ==
PROVIDERS: PCP Family Medicine Adult Medicine; Visit Provider Family Medicine Adult Medicine
DX: G89.29 Other chronic pain (principal); M13.812 Other specified arthritis, left shoulder; M75.102 Unspecified rotator cuff tear or rupture of left shoulder, not specified as traumatic; S46.212A Strain of muscle, fascia and tendon of other parts of biceps, left arm, initial encounter; X58.XXXA Exposure to other specified factors, initial encounter
CPT/HCPCS: 73221

== ENCOUNTER → 2021-02-25 16:24 | Outpatient (BNVA) | payer MEDICARE, SELFPAY | PROVIDERS: PCP Family Medicine Adult Medicine; Visit Provider Orthopaedic Surgery | DX: Z01.812 Encounter for preprocedural laboratory examination (principal); Z20.822 Contact with and (suspected) exposure to COVID-19 | CPT/HCPCS: 87635 ==

== ENCOUNTER 2021-03-03 09:20 | Day surgery (SDC) | payer MEDICARE, SELFPAY ==
[2021-03-02 13:56] VITALS: BMI 27.9
[2021-03-03] VITALS (9 sets, daily range): BP systolic 113–135; BP diastolic 67–83; PULSE 81–97; RESP 16–19; TEMP 36.1–36.5; O2SAT 94–99
--- NOTE | 2021-03-03 09:50 | W.PM.OPSUD ---
Surgery/Procedure H&P Update DATE OF PROCEDURE: March 03, 2021 DATE H&P PERFORMED: 02/02/21 H&P UPDATE INFORMATION: I have reviewed H&P completed within last 30 days and I have examined patient prior to procedure PREOP DIAGNOSIS: Rotator cuff tear Left shoulder PLANNED PROCEDURE: Operation Date: 03/03/21 11:25 Proposed Procedures p Shoulder Arthroscopy 86668 M75.102 M19.012(Left) - Samuel Carvajal MD s Rotator Cuff Repair(Left) - Samuel Carvajal MD
[2021-03-03] MEDS: sodium chloride 0.9% 1,000 ML 30 ML IV (09:55)
--- NOTE | 2021-03-03 10:19 | ANES.PREANE2 ---
Pre-Anesthetic Assessment Pre-Anesthetic Assessment: Height/Weight: Height 1.73 m Weight 83.461 kg Temp Pulse Resp BP Pulse Ox 97.0 F L 82 18 122/82 96 03/03/21 09:38 03/03/21 09:38 03/03/21 09:38 03/03/21 09:38 03/03/21 09:38 Preop Diagnosis: Rotator cuff tear Left shoulder Proposed Procedure: Operation Date: 03/03/21 11:25 Proposed Procedures p Shoulder Arthroscopy 31198 M75.102 M19.012(Left) - Samuel Carvajal MD s Rotator Cuff Repair(Left) - Samuel Carvajal MD Was Beta Good taken within 24 hours: N/A Was Clonidine taken within 24 hours: N/A Last intake: Intake Last Liquid Date 03/03/21 Last Liquid Time 02:00 Last Solid Date 03/02/21 Last Solid Time 20:00 Social: Social History: Tobacco and No alcohol Exam: Pre-Anes Outpt Exam: alert, oriented x 3 and regular rate & rhythm Airway: Submandibular: WNL Cervical ROM: WNL MP: 2 Dentition: Chipped Pulmonary: Pulmonary: COPD CV/HEM: CV/HEM: HTN Metabolic: Metabolic: Hyperlipidemia Anesthetic Plan: ASA status: 3 Anesthesia: General and Regional (specify below) (left interscalene blk) Risk of > 500 ml blood loss (7ml/kg in children): No Meds/Allergies Current Medications: Current Medications Generic Name Dose Route Start Last Admin Trade Name Freq PRN Reason Stop Dose Admin Sodium Chloride 1,000 mls @ 30 ml s/hr 03/03/21 09:30 03/03/21 09:55 Sodium Chloride 0.9% IV 03/04/21 09:29 30 mls/hr .Q24H GAUTAM Administration PFSH Anesthesia PFSH: Medical History Chronic pain in right shoulder Crohn's colitis Diverticulitis Dyslipidemia Hypertension Insomnia disorder Osteoarthritis Perineal abscess Scrotal wall abscess Tear of left rotator cuff Surgical History History of back surgery History of colonoscopy History of esophagogastroduodenoscopy (EGD) Status post incision and drainage (11/19/19) Perianal abscess Status post shoulder surgery 4 SURGERIES ON RIGHT SHOULDER Family History Unknown Fibromyalgia Breast cancer genetic susceptibility Mother Breast cancer genetic susceptibility Sister Breast cancer genetic susceptibility BILATERAL MASTECTOMY Other Brain cancer CAD (coronary artery disease) Diabetes Denies family history of Anesthesia complication Bleeding disorder Social History Smoking and tobacco status: current every day smoker cigarettes Packs smoked per day: 0.5 Years cigarettes smoked: 25 [ Other cigarette details: LESS THAN 1 PPD ] Second hand smoke exposure: Yes Alcohol intake: former Lives independently: Yes Household members: spouse Marital status: service: No Current occupational status: retired and disabled History of recent travel: No Current gender identity: Male Data Anesthesia Cardiac Studies: No Data to Display
--- NOTE | 2021-03-03 10:21 | ANES.PROC ---
Anesthesia Procedures Procedure/Date: 03/03/21 Nerve Block ^: Nerve Block 1: Main Anesthesia: general anesthesia Time Out Performed: Yes Consent: requested by attending/covering physician, from patient, risks and benefits reviewed and patient agrees to proceed Nerve block location: interscalene (left) Anesthesia monitors applied: pulse oximetry, EKG, BP cuff and oxygen Nerve block position: semi sitting Anesthetic Used: ropivicaine 0.5% Amount of anesthesia used (mL): 20 Ultrasound used to: recognize landmarks and visualize and ID brachial plexus Nerve Stimulator Used?: No Interscalene/Femoral BLK: 2 stimuplex 22 g needle used for position and inplane approach and visualize local anesthetic spread Injection: neg aspiration of heme Patient Tolerated Procedure: well Complications: none
--- NOTE | 2021-03-03 13:31 | PM.OP ---
Operative Report Date of procedure: March 03, 2021 Pre-op Diagnosis: Rotator cuff tear Left shoulder Post-op diagnosis: same Post-op Diagnosis: Bursal tearingrotator cuff, impingement, degenerative joint disease acromioclavicular joint left shoulder Post-op Findings: As above Procedure Done: Arthroscopic repair left rotator cuff with bio inductive implant, arthroscopic left subacromial decompression Implants: Byers and Nephew Regeneten patch Pathology: none sent Surgeon: Samuel Carvajal Anesthesia: General Estimated blood loss (mL): 10 Complications: None Findings: The patient had minimal spurring underneath his acromion. He had degenerative changes about his distal clavicle. He had marked thinning of the central bursal rotator cuff with area of deficiency approximately 1 cm from anterior to posterior with approximately a centimeter of bursal retraction changes appeared chronic with incomplete healing Condition: stable Disposition: PACU Procedure: The patient was given a interscalene block in holding and taken to the operating room. He was given 2 g of Ancef and a general anesthesia. He is positioned in the lateral position with his left shoulder exposed. A timeout was performed. A small incision made to centimeters inferior and medial to the posterior corner of the acromion. A scope cannula trocar driven into the glenohumeral joint. An 8 mm inflow cannula was placed anteriorly. The diagnostic portion of the glenohumeral arthroscopy was performed. The rotator cuff looked pristine from the articular aspect. His biceps tendon was retracted and the wound appeared to be healthy. He has some subtle degeneration of the superior labrum but really no significant instability or unstable flaps to benefit from any more than light debridement. The scope was then moved to the subacromial space and the inflow cannula placed anteriorly. A lateral working portal was made and bursal tissue was removed. Initial attention was paid to the leading edge of acromion. It was outlined with the Byers and Nephew Werewolf probe. Utilizing an acromionizer approximately 3 mm of anterior and inferior bone were removed. Next working through the anterior portal the distal clavicle was outlined with the Byers and Nephew Werewolf probe. The acromionizer was introduced and approximately 8 mm of distal clavicle excised. Final attention was paid to the rotator cuff. As I worked laterally area of a clear thinning was identified centrally in the supraspinatus tendon.. Most consistent with the area of bursal retraction or tearing of some chronicity. Altogether approximately 75% of the thickness of the supraspinatus was involved.. More distal lateral incision the Byers and Nephew Regeneten patch was introduced. It was fixed medially with 3 soft tissue gregory through a central more dorsal cannula. 2 additional posterior soft tissue gregory were added for additional stability. Finally to lateral bone gregory were placed securing the graft. The shoulder was irrigated with saline. Portals were closed with 3-0 Prolene. Sterile dressings were applied. The patient was placed in a sling, extubated, and taken to recovery room in stable condition.
--- NOTE | 2021-03-03 13:39 | SUR.PHASEI ---
PT TO PACU AWAKE ALERT DENIES PAIN AND NAUSEA, VSS LT SHOULDER D/I SLING IN PLACE DISTAL HAND FINGERS PINK WARM
--- NOTE | 2021-03-03 13:46 | SUR.PHASEI ---
PT TAKING ICE CHIPS WITHOUT DIFFICULTY
--- NOTE | 2021-03-03 16:13 | ANE.PACU2 ---
Inpatient post-anesthesia follow up: Airway intact: Yes Vital signs: Temperature 97.6 F Pulse Rate 94 Respiratory Rate 18 Blood Pressure 122/81 Pulse Oximetry 95 Oxygen Delivery Me thod Room Air Oxygen Flow Rate 8 Fraction of Inspir ed Oxygen Hydration adequate: Yes Nausea and vomiting: No Pain level: 1 Mental status: Baseline
== END 2021-03-03 14:32 | disposition home or self-care (01) ==
PROVIDERS: PCP Family Medicine Adult Medicine; Visit Provider Orthopaedic Surgery
PROC: (CPT 29805; principal; 2021-03-03 11:15)
PROC: (CPT 29826; 2021-03-03 11:15)
DX: M75.102 Unspecified rotator cuff tear or rupture of left shoulder, not specified as traumatic (principal); J44.9 Chronic obstructive pulmonary disease, unspecified; I10 Essential (primary) hypertension; E78.5 Hyperlipidemia, unspecified; M19.90 Unspecified osteoarthritis, unspecified site; F17.210 Nicotine dependence, cigarettes, uncomplicated
CPT/HCPCS: 29826; 29827; 64415; 76942; C1713; J0690; J1100; J1885; J2250; J2405; J2704; J2710; J2795; J3010; J3490; J7030

== ENCOUNTER 2021-04-26 06:00 | Outpatient (RCR) | payer MEDICARE, SELFPAY | END 2021-05-13 23:59 | disposition home or self-care (01) | LOC: TPT 06:00 | PROVIDERS: PCP Family Medicine Adult Medicine; Referring Provider Orthopaedic Surgery; Visit Provider Orthopaedic Surgery | DX: Z98.890 Other specified postprocedural states (principal) | CPT/HCPCS: 97110; 97140; 97162 ==

== ENCOUNTER → 2021-04-27 11:11 | Outpatient (BNVA) | payer MEDICARE, SELFPAY | PROVIDERS: PCP Family Medicine Adult Medicine; Visit Provider Family Medicine Adult Medicine | DX: E29.1 Testicular hypofunction (principal); I10 Essential (primary) hypertension; M75.102 Unspecified rotator cuff tear or rupture of left shoulder, not specified as traumatic | CPT/HCPCS: 84403 ==

== ENCOUNTER → 2021-07-19 15:47 | Outpatient (BNVA) | payer OTHER, SELFPAY | PROVIDERS: PCP Family Medicine Adult Medicine; Visit Provider Family Medicine Adult Medicine | DX: M72.2 Plantar fascial fibromatosis (principal); M19.90 Unspecified osteoarthritis, unspecified site; G89.29 Other chronic pain; M19.012 Primary osteoarthritis, left shoulder; Z13.6 Encounter for screening for cardiovascular disorders | CPT/HCPCS: 85651; 86140; 86160; 86162; 86235; 86255; 86376; 86431 ==

== ENCOUNTER → 2024-08-11 10:27 | Outpatient (BNVA) | payer OTHER, SELFPAY | PROVIDERS: PCP Family Medicine; Visit Provider Family Medicine | DX: E29.1 Testicular hypofunction (principal); I10 Essential (primary) hypertension | CPT/HCPCS: 80053; 80061; 84403; 85025 ==